=== PATIENT | female | born 1980 | race Caucasian/White ===

== ENCOUNTER 2017-12-26 00:43 | Emergency (ER) | payer OTHER ==
[2017-12-26 01:10] LABS: BILIRUBIN,URINE NEGATIVE (NEGATIVE); GLUCOSE, URINE (UA) NEGATIVE (NEGATIVE); KETONES,URINE (UA) NEGATIVE (NEGATIVE); LEUKOCYTE ESTERASE, URINE NEGATIVE (NEGATIVE); NITRITE,URINE NEGATIVE (NEGATIVE); OCCULT BLOOD,URINE NEGATIVE (NEGATIVE); PROTEIN,URINE NEGATIVE (NEGATIVE); UROBILINOGEN,URINE 0.2 (NORMAL) E.U./dL (NORMAL)
[2017-12-26 01:11] LABS: CLARITY,URINE CLEAR (CLEAR)
[2017-12-26 01:23] LABS: BASOPHILS # (AUTO) 0.2 10^3/uL (0.0-0.1); BASOPHILS % (AUTO) 1.2 %; HGB - HEMOGLOBIN 12.4 g/dL (12.0-16.0); LYMPHOCYTES # (AUTO) 4.3 10^3/uL (1.5-3.5); LYMPHOCYTES % (AUTO) 31.7 %; MEAN CORPUSCULAR HGB CONC 32.9 g/dL (32.0-36.0); MEAN CORPUSCULAR VOLUME 79.1 fL (81.0-99.0); MEAN PLATELET VOLUME 8.9 fL (7.9-10.8); MONOCYTES # (AUTO) 1.2 10^3/uL (0.0-1.0); MONOCYTES % (AUTO) 9.1 %; NEUTROPHILS # (AUTO) 7.8 10^3/uL (1.5-6.6); PLT - PLATELET COUNT 344 10^3/uL (130-450); RED BLOOD COUNT 4.76 10^6/uL (4.20-5.40); RED CELL DISTRIBUTION WIDTH 15.8 % (12.0-15.0); WHITE BLOOD COUNT 13.5 x10^3/uL (4.8-10.8)
[2017-12-26 01:34] LABS: ALBUMIN 4.7 g/dL (3.2-5.5); ALBUMIN/GLOBULIN RATIO 1.3 (1.0-2.2); BILIRUBIN,TOTAL 0.6 mg/dL (0.2-1.0); CALCIUM 9.8 mg/dL (8.5-10.3); CREATININE 0.6 mg/dL (0.4-1.0); TOTAL PROTEIN 8.3 g/dL (6.7-8.2)
[2017-12-26] MEDS ORDERED: RHO(D) IMMUNE GLOBULIN 300 MCG SYRINGE IM ONE (02:41)
--- NOTE | 2017-12-26 02:42 | ED Physician Documentation ---
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 patient states that the symptoms have been going on starting today. patient reports that she called the nursing hot line who told the patient come in for evaluation. Patient had a history of prior cva on aspirin daily Review of Systems Constitutional: denies: Fever, Chills Eyes: reports: Reviewed and negative Ears: reports: Reviewed and negative Nose: reports: Reviewed and negative Throat: reports: Reviewed and negative Cardiac: reports: Reviewed and negative Respiratory: reports: Reviewed and negative GI: denies: Abdominal Pain, Nausea, Vomiting : reports: Vaginal bleeding Skin: denies: Rash, Lesions Musculoskeletal: reports: Reviewed and negative Neurologic: denies: Generalized weakness, Focal weakness, Headache Immunocompromised: denies: Immunocompromised PD PAST MEDICAL HISTORY - Past Medical History Past Medical History: Yes Cardiovascular: None Respiratory: None Neuro: CVA Endocrine/Autoimmune: None GI: None 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: Ovarian cysts, Other : None HEENT: None Psych: None Musculoskeletal: Other Derm: None - Past Surgical History Past Surgical History: Yes General: Other Ortho: Other - Allergies Allergies/Adverse Reactions: Allergies Allergy/AdvReac Type Severity Reaction Status Date / Time morphine AdvReac Respiratory Verified 12/26/17 00:58 pseudoephedrine AdvReac Unknown Verified 12/26/17 00:58 [facility] - Social History Does the pt smoke?: No Smoking Status: Never smoker Does the pt drink ETOH?: Yes Does the pt have substance abuse?: No - Immunizations Immunizations are current?: Yes - POLST Patient has POLST: No PD ED PE NORMAL - General General: Alert and oriented X 3, No acute distress - HEENT HEENT: Atraumatic, PERRL - Cardiac Cardiac: RRR - Respiratory Respiratory: No respiratory distress - Abdomen Abdomen: Soft, Non tender, Non distended - Female Female : Deferred - Derm Derm: Normal color, Warm and dry - Extremities Extremities: No deformity, Normal ROM s pain - Neuro Neuro: Alert and oriented X 3, No motor deficit, Normal speech Eye Opening: Spontaneous Motor: Obeys Commands Verbal: Oriented GCS Score: 15 Results - Vitals Vitals: Vital Signs - 24 hr 12/26/17 00:55 Temperature 37.0 C Heart Rate 88 Respiratory 18 Rate Blood Pressure 159/91 H O2 Saturation 100 Oxygen O2 Source Room air - Labs Labs: Laboratory Tests 12/26/17 12/26/17 12/26/17 01:01 01:11 01:11 WBC 13.5 H RBC 4.76 Hgb 12.4 Hct 37.7 MCV 79.1 L MCH 26.0 L MCHC 32.9 RDW 15.8 H Plt Count 344 MPV 8.9 Neut # 7.8 H Lymph # 4.3 H [place] # 1.2 H Eos # 0.0 Baso # 0.2 H Absolute Nucleated RBC 0.01 Nucleated RBC % 0.1 Sodium 133 L Potassium 4.0 Chloride 100 L Carbon Dioxide 22 Anion Gap 11.0 BUN 10 Creatinine 0.6 Estimated GFR (MDRD) 111 Glucose 105 H Calcium 9.8 Total Bilirubin 0.6 AST 15 ALT 11 Alkaline Phosphatase 52 Total Protein 8.3 H Albumin 4.7 Globulin 3.6 Albumin/Globulin Ratio 1.3 Lipase 18 L HCG, Quant Urine Color YELLOW Urine Clarity CLEAR Urine pH 6.0 Ur Specific [place] 1.010 Urine Protein NEGATIVE Urine Glucose (UA) NEGATIVE Urine Ketones NEGATIVE Urine Occult Blood NEGATIVE Urine Nitrite NEGATIVE Urine Bilirubin NEGATIVE Urine Urobilinogen 0.2 (NORMAL) Ur Leukocyte Esterase NEGATIVE Ur Microscopic Review NOT INDICATED Urine Culture Comments NOT INDICATED Blood Type 12/26/17 12/26/17 01:11 01:11 WBC RBC Hgb Hct MCV MCH MCHC RDW Plt Count MPV Neut # Lymph # [place] # Eos # Baso # Absolute Nucleated RBC Nucleated RBC % Sodium Potassium Chloride Carbon Dioxide Anion Gap BUN Creatinine Estimated GFR (MDRD) Glucose Calcium Total Bilirubin AST ALT Alkaline Phosphatase Total Protein Albumin Globulin Albumin/Globulin Ratio Lipase HCG, Quant 36035.00 Urine Color Urine Clarity Urine pH Ur Specific [place] Urine Protein Urine Glucose (UA) Urine Ketones Urine Occult Blood Urine Nitrite Urine Bilirubin Urine Urobilinogen Ur Leukocyte Esterase Ur Microscopic Review Urine Culture Comments Blood Type O NEGATIVE - Rads (name of study) pelvic us Radiology: Final report received (iup, 6 weeks by size, yolk sac present, no hr large uterine fibroids.), EMP read contemporaneously PD MEDICAL DECISION MAKING - ED course Complexity details: reviewed old records, reviewed results, re-evaluated patient , considered differential, d/w patient ED course: Patient was seen and examined at bedside. labs were drawn, urine was collected and imaging was ordered. When patient returned from imaging the results were reviewed. Patient's had an IUP. patient was treated with rhogam as she ws Rh negative. Patient was made aware of her findings and given detailed discharge and follow up instructions. Patient required no further work up and was stable for discharge with outpatient follow up. Departure - Departure Disposition: 01 Home, Self Care Clinical Impression: Threatened in early Condition: Good Instructions: ED Miscarriage Poss Follow-Up: MICHAEL POWER MD [Primary Care Provider] - Tomorrow Comments: Your diagnostics showed an intrauterine approximately 6 weeks by ultrasound. You did have two large uterine fibroids which could be contributing to the bleeding. You are at a higher risk and you will need to be followed closely. You should avoid any heavy lifting or strenuous activity. You should follow up with your ob this week for further evaluation and care.
[2017-12-26] MEDS ORDERED: RHO(D) IMMUNE GLOBULIN 300 MCG SYRINGE ONE (03:08)
--- NOTE | 2017-12-26 03:30 | Ultrasound Report ---
EXAM: FIRST TRIMESTER OBSTETRIC ULTRASOUND (Less than 11 weeks) EXAM DATE: 12/26/2017 03:07 AM. CLINICAL HISTORY: . Vaginal bleeding. LMP: 11/06/2017. COMPARISONS: None. TECHNIQUE: Transabdominal and transvaginal ultrasound examination with static image documentation. CLINICAL DATES: EGA 7 weeks 1 day with JOSEFINA 08/13/2018 based on LMP. ASSESSMENT: Gestational Sac: Single intrauterine. Mean gestational sac diameter: 17 mm = 6 weeks 4 days. Embryo: CRL (crown-rump length) 4 mm = 6 weeks 2 days. Cardiac activity: Not seen. Yolk sac: 3.6 mm. Amniotic fluid: Not accurately assessed at this gestational age. Early placenta: Not visible at this gestational age. Other: No perigestational fluid collection demonstrated. MATERNAL STRUCTURES: Uterus: Anteverted. Enlarged at 16.2 x 9.0 x 8.5 cm, 653 cc. Fundal pedunculated fibroid measuring 7. 0 x 4.5 x 8.4 cm. Posterior subserosal fibroid measuring 5.7 x 6.1 x 6.2 cm. Cervix: Closed. Right Ovary/Adnexa: Unremarkable. The ovary measures 3.1 x 1.8 x 2.7 cm, volume 8.2 cc. Left Ovary/Adnexa: Unremarkable. The ovary measures 2.2 x 2.7 x 3.5 cm, volume 10.6 cc. Free Fluid: None. Other: None. IMPRESSION: 1. Single intrauterine at EGA 6 weeks 2 days with JOSEFINA 08/19/2018 based on crown-rump length , which is discordant with clinical dates. 2. Assigned dating is JOSEFINA 08/19/2018 based on current US. 3. Cardiac activity not identified. It may be too early in gestation. Sonographic follow-up recommend ed. 4. Bulky uterus measuring 653 cc with at least 2 large fibroids measuring up to 8 cm in diameter. [facility] Referring Provider Line: [phone] SITE ID: [id number]
[2017-12-26 03:49] VITALS: BP 129/75
== END 2017-12-26 03:52 | disposition home or self-care (01) ==
LOC: ED 00:43
DX: O26.851 Spotting complicating pregnancy, first trimester (principal); Z3A.01 Less than 8 weeks gestation of pregnancy; Z86.73 Personal history of transient ischemic attack (TIA), and cerebral infarction without residual deficits
CPT/HCPCS: 36415; 76801; 76817; 80053; 81001; 81003; 83690; 84702; 85025; 86900; 86901; 87086; 96372; 99283

== ENCOUNTER 2018-02-15 16:50 | Observation (INO) | payer OTHER ==
[2018-02-15 17:17] LABS: BASOPHILS % (AUTO) 0.3 %; EOSINOPHILS % (AUTO) 0.3 %; LYMPHOCYTES # (AUTO) 2.7 10^3/uL (1.5-3.5); MEAN CORPUSCULAR HEMOGLOBIN 27.1 pg (27.0-31.0); MEAN CORPUSCULAR HGB CONC 32.7 g/dL (32.0-36.0); MEAN CORPUSCULAR VOLUME 82.9 fL (81.0-99.0); MEAN PLATELET VOLUME 8.2 fL (7.9-10.8); MONOCYTES # (AUTO) 0.9 10^3/uL (0.0-1.0); MONOCYTES % (AUTO) 7.8 %; NEUTROPHILS # (AUTO) 7.3 10^3/uL (1.5-6.6); NEUTROPHILS % (AUTO) 66.6 %; PLT - PLATELET COUNT 294 10^3/uL (130-450); RED BLOOD COUNT 4.44 10^6/uL (4.20-5.40); RED CELL DISTRIBUTION WIDTH 18.6 % (12.0-15.0); WHITE BLOOD COUNT 10.9 x10^3/uL (4.8-10.8)
[2018-02-15 17:47] LABS: ALBUMIN 3.7 g/dL (3.2-5.5); ALBUMIN/GLOBULIN RATIO 0.9 (1.0-2.2); ALKALINE PHOSPHATASE 39 IU/L (42-121); ALT ALANINE AMINOTRANSFERASE 10 IU/L (10-60); AST ASPARTATE AMINOTRANSFERASE 16 IU/L (10-42); BILIRUBIN,TOTAL 0.4 mg/dL (0.2-1.0); BUN - BLOOD UREA NITROGEN 7 mg/dL (6-20); CALCIUM 10.1 mg/dL (8.5-10.3); CARBON DIOXIDE - CO2 24 mmol/L (21-32); CHLORIDE 104 mmol/L (101-111); CREATININE 0.6 mg/dL (0.4-1.0); GFR - MDRD 111 (>89); GLUCOSE 129 mg/dL (70-100); LIPASE 20 U/L (22-51); SODIUM 136 mmol/L (135-145); TOTAL PROTEIN 7.7 g/dL (6.7-8.2)
[2018-02-15] MEDS ORDERED: MAG HYDROX/AL HYDROX/SIMETH 30 ML UDC PO STA (18:57)
[2018-02-15] MEDS ORDERED: LIDOCAINE VISCOUS 2% 15 ML UDC MM STA (18:57)
--- NOTE | 2018-02-15 19:00 | ED Physician Documentation ---
PD HPI ABD PAIN - Stated complaint Stated Complaint: 14 WKS/CRAMP/HX OF STROKE - Chief complaint Chief Complaint: Abd Pain - History obtained from History obtained from: Patient, Family - History of Present Illness Timing - onset: Other (37-year-old G1 at 13 weeks gestation. She has had a stroke in the past and currently is taking aspirin and vitamins. For the last 5 days she has had central abdominal pain with nausea but no vomiting and left lower quadrant cramping. There is no bleeding or fluid loss.) Review of Systems Ten Systems: 10 systems reviewed and negative Constitutional: denies: Fever, Chills Respiratory: denies: Dyspnea, Cough GI: reports: Abdominal Pain, Nausea. 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: Ovarian cysts, Other : None HEENT: None Psych: None Musculoskeletal: Other Derm: None - Past Surgical History Past Surgical History: Yes General: Other Ortho: Other - Allergies Allergies/Adverse Reactions: Allergies Allergy/AdvReac Type Severity Reaction Status Date / Time morphine AdvReac Respiratory Verified 12/26/17 00:58 pseudoephedrine AdvReac Unknown Verified 12/26/17 00:58 [From [facility]] - Social History Does the pt smoke?: No Smoking Status: Never smoker Does the pt drink ETOH?: Yes Does the pt have substance abuse?: No - Family History Family history: reports: Non contributory - Immunizations Immunizations are current?: Yes - POLST Patient has POLST: No PD ED PE NORMAL - Vitals Vital signs reviewed: Yes - General General: Alert and oriented X 3, Other (She does appear uncomfortable) - Neck Neck: Supple, no meningeal sign, No bony TTP - Cardiac Cardiac: RRR, No murmur - Respiratory Respiratory: No respiratory distress, Clear bilaterally - Abdomen Abdomen: Other (Tender to the left pelvis without guarding or rebound. Bedside ultrasound demonstrates single live intrauterine with heart rate of 158.) - Derm Derm: Normal color, Warm and dry - Extremities Extremities: No edema, No calf tenderness / cord - Neuro Neuro: Alert and oriented X 3, Normal speech - Psych Psych: Normal mood, Normal affect Results - Vitals Vitals: Vital Signs - 24 hr 02/15/18 02/15/18 02/15/18 16:56 19:32 21:07 Temperature 36.8 C Heart Rate 106 H 92 81 Respiratory 16 20 16 Rate Blood Pressure 157/102 H 137/90 H 136/85 H O2 Saturation 99 100 100 02/15/18 21:51 Temperature Heart Rate 99 Respiratory 18 Rate Blood Pressure 141/88 H O2 Saturation 100 Oxygen O2 Source Room air - Labs Labs: Laboratory Tests 02/15/18 02/15/18 02/15/18 17:11 17:11 18:50 WBC 10.9 H RBC 4.44 Hgb 12.0 Hct 36.8 L MCV 82.9 MCH 27.1 MCHC 32.7 RDW 18.6 H Plt Count 294 MPV 8.2 Neut # 7.3 H Lymph # 2.7 [place] # 0.9 Eos # 0.0 Baso # 0.0 Absolute Nucleated RBC 0.00 Nucleated RBC % 0.0 Sodium 136 Potassium 3.3 L Chloride 104 Carbon Dioxide 24 Anion Gap 8.0 BUN 7 Creatinine 0.6 Estimated GFR (MDRD) 111 Glucose 129 H Calcium 10.1 Total Bilirubin 0.4 AST 16 ALT 10 Alkaline Phosphatase 39 L Total Protein 7.7 Albumin 3.7 Globulin 4.0 Albumin/Globulin Ratio 0.9 L Lipase 20 L Serum HCG, Qual POSITIVE Urine Color YELLOW Urine Clarity CLEAR Urine pH 5.5 Ur Specific [place] <=1.005 Urine Protein NEGATIVE Urine Glucose (UA) NEGATIVE Urine Ketones NEGATIVE Urine Occult Blood TRACE-INTA Urine Nitrite NEGATIVE Urine Bilirubin NEGATIVE Urine Urobilinogen 0.2 (NORMAL) Ur Leukocyte Esterase NEGATIVE Ur Microscopic Review NOT INDICATED Urine Culture Comments NOT INDICATED - Rads (name of study) Pelvic and abd sono Radiology: EMP read contemporaneously (Normal gallbladder, fibroid uterus.) PD MEDICAL DECISION MAKING - ED course ED course: 37-year-old woman who is tender in the left lower quadrant, she is with a high risk . No resolution with GI cocktail and appeared persistently uncomfortable. Workup notable for mild leukocytosis and fibroid uterus. Given persistent tenderness I did ask the on-call behavioral interventionist, Dr. Beata Santiago to come see her at around 930. After her evaluation the plan is to keep her in observation for serial exam and ultrasounds. Departure - Departure Disposition: ED Place in Observation Clinical Impression: Abdominal pain Qualifiers: Abdominal location: generalized Qualified Code(s): R10.84 - Generalized abdominal pain Qualifiers: Weeks of gestation: 13 weeks Qualified Code(s): Z3A.13 - 13 weeks gestation of Condition: Stable
[2018-02-15 19:17] LABS: HCG,QUALITATIVE BLOOD POSITIVE
[2018-02-15 19:26] LABS: BILIRUBIN,URINE NEGATIVE (NEGATIVE); GLUCOSE, URINE (UA) NEGATIVE (NEGATIVE); KETONES,URINE (UA) NEGATIVE (NEGATIVE); LEUKOCYTE ESTERASE, URINE NEGATIVE (NEGATIVE); NITRITE,URINE NEGATIVE (NEGATIVE); OCCULT BLOOD,URINE TRACE-INTA (NEGATIVE); PH,URINE 5.5 PH (5.0-7.5); PROTEIN,URINE NEGATIVE (NEGATIVE); UROBILINOGEN,URINE 0.2 (NORMAL) E.U./dL (NORMAL)
[2018-02-15 19:29] LABS: CLARITY,URINE CLEAR (CLEAR)
--- NOTE | 2018-02-15 21:20 | Ultrasound Report ---
EXAM: FIRST TRIMESTER OBSTETRIC ULTRASOUND (Less than 11 weeks) EXAM DATE: 02/15/2018 08:56 PM. CLINICAL HISTORY: Pelvic, LLQ pain 13 weeks. LMP: 11/06/2017. COMPARISONS: None. TECHNIQUE: Transabdominal ultrasound examination with static image documentation. ASSESSMENT: Gestational Sac: Single intrauterine. Mean gestational sac diameter: 58 mm. Embryo: CRL (crown-rump length) 68 mm = 13 weeks 6 days. Cardiac activity: 140 beats per minute. Amniotic fluid: Subjectively within normal limits.. Early placenta: Anterior. Other: No perigestational fluid collection demonstrated. MATERNAL STRUCTURES: Uterus: Anteverted/Retroverted. There are several large fibroids. There is a 6.2 x 6.3 x 6.7 cm right lower uterine segment intramural fibroid. Possible left lower uterine segment intramural fibroid ashleigh suring 4.0 x 3.5 x 3.2 cm. Cervix: Closed. Right Ovary/Adnexa: Unremarkable. The ovary measures 2.7 x 3.0 x 2.4 cm, volume 10 cc. Left Ovary/Adnexa: Unremarkable. The ovary measures 4.4 x 1.8 x 3.2 cm, volume 13 cc. Free Fluid: None. Other: None. IMPRESSION: 1. Single viable intrauterine at EGA 13 weeks 4 days based on crown-rump length, which is c oncordant with clinical dates. 2. Assigned dating is JOSEFINA 14 weeks 3 days based on symmetrically clinical dating. 3. There is one and possibly two large lower uterine segment fibroids. 4. The ovaries are normal in size, echotexture, and vascularity. [facility] Referring Provider Line: [phone] SITE ID: [id number]
--- NOTE | 2018-02-15 21:22 | Ultrasound Preliminary Report ---
Exam: US ABDOMEN LIMITED IMPRESSION: 1. The gallbladder demonstrates no stones or wall thickening. 2. No intra-or extrahepatic bile duct dilatation. [facility] SITE ID: [id number]
--- NOTE | 2018-02-15 21:22 | Ultrasound Report ---
EXAM: ABDOMEN ULTRASOUND LIMITED, RUQ EXAM DATE: 02/15/2018 09:01 PM. CLINICAL HISTORY: Abd pain. COMPARISON: None. TECHNIQUE: Real-time scanning was performed with static images obtained. FINDINGS: Liver: Submitted images of liver demonstrate no focal lesions. Main portal vein flow: Hepatopetal. Gallbladder: Subcentimeter echogenic nonmobile focus could represent a polyp. No gallbladder wall thi ckening. Negative sonographic Cardenas sign. Biliary System: CBD measures 2 mm. No intrahepatic or extrahepatic ductal dilatation. Other: The visualized pancreas and right kidney are unremarkable. IMPRESSION: 1. The gallbladder demonstrates no stones or wall thickening. 2. No intra-or extrahepatic bile duct dilatation. [facility] Referring Provider Line: [phone] SITE ID: [id number]
[2018-02-15] MEDS ORDERED: fentaNYL 100 MCG/2 ML VIAL IVP STA ×2 (21:31→22:34)
[2018-02-15] MEDS ORDERED: SODIUM CHLORIDE FLUSH 0.9% 10 ML SYRINGE IVP PRN (22:19)
[2018-02-15] MEDS ORDERED: ZOLPIDEM 5 MG TABLET PO PRN (22:19)
--- NOTE | 2018-02-15 22:56 | PROVIDER PROGRESS NOTE ---
Subjective - Prog Note Date Prog Note Date: 02/15/18 Prog Note Time: 22:52 Objective - Vital Signs/Intake & Output Reviewed Vital Signs: Yes Vital Signs: Vital Signs x48h Temp Pulse Resp BP Pulse Ox 02/15/18 22:41 78 16 141/89 H 100 02/15/18 21:51 99 18 141/88 H 100 02/15/18 21:07 81 16 136/85 H 100 02/15/18 19:32 92 20 137/90 H 100 02/15/18 16:56 98.2 F 106 H 16 157/102 H 99 - Objective General Appearance: positive: Mild distress (Secondary to pain) - Lab Results Fish Bones: 02/15/18 17:11 02/15/18 17:11 Other Labs: Lab Results x24hrs 02/15/18 02/15/18 02/15/18 Range/Units 18:50 17:11 17:11 WBC 10.9 H (4.8-10.8) x10^3/uL RBC 4.44 (4.20-5.40) 10^6/uL Hgb 12.0 (12.0-16.0) g/dL Hct 36.8 L (37.0-47.0) % MCV 82.9 (81.0-99.0) fL MCH 27.1 (27.0-31.0) pg MCHC 32.7 (32.0-36.0) g/dL RDW 18.6 H (12.0-15.0) % Plt Count 294 (130-450) 10^3/uL MPV 8.2 (7.9-10.8) fL Neut # 7.3 H (1.5-6.6) 10^3/uL Lymph # 2.7 (1.5-3.5) 10^3/uL [place] # 0.9 (0.0-1.0) 10^3/uL Eos # 0.0 (0.0-0.7) 10^3/uL Baso # 0.0 (0.0-0.1) 10^3/uL Absolute Nucleated RBC 0.00 x10^3/uL Nucleated RBC % 0.0 /100WBC Sodium 136 (135-145) mmol/L Potassium 3.3 L (3.5-5.0) mmol/L Chloride 104 (101-111) mmol/L Carbon Dioxide 24 (21-32) mmol/L Anion Gap 8.0 (6-13) BUN 7 (6-20) mg/dL Creatinine 0.6 (0.4-1.0) mg/dL Estimated GFR (MDRD) 111 (>89) Glucose 129 H (70-100) mg/dL Calcium 10.1 (8.5-10.3) mg/dL Total Bilirubin 0.4 (0.2-1.0) mg/dL AST 16 (10-42) IU/L ALT 10 (10-60) IU/L Alkaline Phosphatase 39 L (42-121) IU/L Total Protein 7.7 (6.7-8.2) g/dL Albumin 3.7 (3.2-5.5) g/dL Globulin 4.0 (2.1-4.2) g/dL Albumin/Globulin Ratio 0.9 L (1.0-2.2) Lipase 20 L (22-51) U/L Serum HCG, Qual POSITIVE Urine Color YELLOW Urine Clarity CLEAR (CLEAR) Urine pH 5.5 (5.0-7.5) PH Ur Specific [place] <=1.005 (1.002-1.030) Urine Protein NEGATIVE (NEGATIVE) mg/dL Urine Glucose (UA) NEGATIVE (NEGATIVE) mg/dL Urine Ketones NEGATIVE (NEGATIVE) mg/dL Urine Occult Blood [place] (NEGATIVE) Urine Nitrite NEGATIVE (NEGATIVE) Urine Bilirubin NEGATIVE (NEGATIVE) Urine Urobilinogen 0.2 (NORMAL) (NORMAL) E.U./dL Ur Leukocyte Esterase NEGATIVE (NEGATIVE) Ur Microscopic Review NOT INDICATED Urine Culture Comments NOT INDICATED Assessment/Plan - Problem List (1) Abdominal pain Impression: 37 yo with a 14w3d IUP Epigastric and LLQ pain of unknown origin, most likely from GI Will admit to observation for IV PPI and acid reducers as well as pain control Order complete abdomen U/S in AM Start labetalol 100 mg BID for chronic HTN Continue ASA 81 mg QD along with SCD's for H/O CVA 05/2017 Request records in AM Strongly consider consultation of MFM in AM if no significant improvement H&P Dictated [id number] Qualifiers: Abdominal location: generalized Qualified Code(s): R10.84 - Generalized abdominal pain
[2018-02-16] MEDS: LACTATED RINGERS 1,000 ML IV SCH ×2 (00:12→07:21)
[2018-02-16] MEDS: LABETALOL 100 MG TABLET PO SCH ×2 (00:21→10:49)
[2018-02-16] MEDS: HYDROmorphone 0.5 MG/0.5 ML SYRINGE IVP PRN ×4 (00:22→10:49)
[2018-02-16] MEDS: ASPIRIN EC 81 MG TABLET PO SCH ×2 (00:24→10:49)
[2018-02-16] MEDS: PRENATAL VITAMIN TABLET PO SCH ×2 (00:24→09:00)
[2018-02-16] MEDS: FAMOTIDINE 20 MG/50 ML 50 ML IV SCH ×2 (00:27→10:50)
[2018-02-16] MEDS ORDERED: SODIUM CHLORIDE FLUSH 0.9% 10 ML SYRINGE IVP SCH (01:00)
[2018-02-16] MEDS: ONDANSETRON 4 MG/2 ML VIAL IVP PRN ×2 (01:06→10:48)
[2018-02-16] MEDS: ACETAMINOPHEN 325 MG TABLET PO PRN ×2 (05:32→10:49)
[2018-02-16] MEDS ORDERED: PANTOPRAZOLE 40 MG VIAL IVP SCH (07:00)
[2018-02-16 07:30] LABS: MUDS CUTOFF CONCENTRATIONS CUTOFF CONC BELOW:
[2018-02-16 07:45] LABS: AMPHETAMINE SCREEN,URINE NEGATIVE (NEGATIVE); BENZODIAZEPINES SCREEN, URINE NEGATIVE (NEGATIVE); COCAINE SCREEN URINE NEGATIVE (NEGATIVE); METHADONE SCREEN, URINE NEGATIVE (NEGATIVE); METHAMPHETAMINES SCREEN, URINE NEGATIVE (NEGATIVE); OPIATE SCREEN, URINE NEGATIVE (NEGATIVE); OXYCODONE SCREEN, URINE NEGATIVE (NEGATIVE); PROPOXYPHENE SCREEN, URINE NEGATIVE (NEGATIVE); TRICYCLIC ANTIDEPRESSANT,URINE NEGATIVE (NEGATIVE)
--- NOTE | 2018-02-16 07:52 | HISTORY & PHYSICAL EXAMINATION ---
DATE OF SERVICE: 02/15/2018 Physician: Beata Santiago DO IDENTIFICATION: This is a 37-year-old G1, P0, with a 13w4d IUP. LMP of 2017 and an EDC of 08/19/2018. HISTORY OF PRESENT ILLNESS: The patient is a patient of [facility], specifically Dr. Rubio, who presents to the emergency department this evening. She is accompanied by her , Oswaldo. 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 Obi Paiz at the [facility]. She saw Dr. Paiz about 2-1/2 weeks ago. At that time, she was complaining about having epigastric pain and was given a prescription for Pepcid. Pepcid has not seemed to help. Her symptoms have been getting more frequent and more intense. She has a hard time describing the pain, but it is not stabbing nor sharp, it is "intense." The frequency and intensity have been worsening since Monday about 4-1/2 days ago. The pain is also constant. 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 She feels that she needs to burp, but cannot do so. The pain comes and goes. She thought that it may be related to her GI tract since she did not have a bowel movement between Monday to Monday, but did have 2 bowel movements yesterday. She also has decreased appetite and has not eaten in the last day. She denies any vaginal bleeding and states that she has been checking the baby's heart rate twice a day. The patient has been seen in the emergency department and has been worked up by Dr. Baudilio Brooke. So far, workup is unremarkable. A GI cocktail was given to her, but there was no resolution of her pain. She was also given some fentanyl and felt some improvement in the pain, but felt more dizzy. PAST MEDICAL HISTORY 1. Hypertension, newly diagnosed. 2. CVA in May 2017, in [place]. 3. PCOS. PAST SURGICAL HISTORY 1. Ankle surgery on the left side x4. 2. Right eye. ALLERGIES 1. MORPHINE, IN WHICH SHE FEELS LIKE SOMEONE IS SITTING ON HER CHEST AND IT IS HARD FOR HER TO BREATHE. 2. PSEUDOEPHEDRINE CAUSES HER TO CONVULSE. MEDICATIONS 1. vitamins. 2. Aspirin 81 mg. 3. Pepcid-AC. 4. Labetalol 100 mg 1 tab p.o. b.i.d. that has been started by Dr. Paiz, but she has not initiated this. SOCIAL HISTORY: The patient was smoking 5-7 cigarettes per day and stopped about 1 week prior to her cessation of tobacco smoking. She denies any history of alcoholism or illicit drug use. She states she has been working on and off, but is not specific in what career she has. 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 PAST MEDICAL HISTORY: Primigravida. She was told that it was extremely unlikely for her to get . PAST GYNECOLOGIC HISTORY: The patient does have a history of PCOS and had one menstrual cycle per year. After her stroke, she had a large amount of weight loss and consequently had monthly periods. She states her Pap smears have been normal and denies any sexually transmitted diseases. FAMILY HISTORY: CVAs. REVIEW OF SYSTEMS: Negative, unless otherwise stated. She does have nausea, but denies any vomiting, fevers or chills. PHYSICAL EXAMINATION VITAL SIGNS: Blood pressure 136/85, pulse 81, respirations 16, pulse oximetry 100. GENERAL: The patient is a female who appears to be in some amount of distress. She does bend over in the bed when she has experienced a wave of pain. She does appear to be older than her stated age. She is obese. HEENT: The patient does have a laterally deviated left eye and she is hirsute. ABDOMEN: Soft. Mild tenderness to palpation in the epigastric area in the left lower quadrant. There are no peritoneal signs. We could not appreciate the uterus given her body habitus. Workup reveals a white count of 10.9, H and H of 12.0 and 36.8, platelets 294. Potassium 3.3, creatinine 0.6, glucose 129, AST 16, ALT 10, lipase is 20. Urinalysis only shows trace occult blood. First trimester OB ultrasound showed a single intrauterine with a crown-rump length of 68 mm or 13 weeks 6 days, 140 beats per minute, anterior placenta, no perigestational fluid collection demonstrated. The uterus has several large fibroids. There is a 6.2 x 6.3 x 6.7 cm right lower uterine segment intramural fibroid, possible left uterine segment intramural fibroid measuring 4.0 x 3.5 x 3.2 cm. Cervix is closed. Ovaries are within normal limits. No free fluid. Limited right upper quadrant ultrasound for abdominal pain shows the gallbladder demonstrates no stones or wall thickening, no intra or extrahepatic bile duct dilatation. An earlier emergency department visit on 12/26/2017 revealed her blood type is O negative. She did receive RhoGAM at that time for threatened . ASSESSMENT 1. A 37-year-old G1, P0, with a 13w4d intrauterine . 2. Epigastric and left lower quadrant pain of unknown etiology. 3. Chronic hypertension. 4. History of cerebrovascular accident in 05/2017. PLAN 1. It is not obvious to me what is the cause of the patient's epigastric pain. The differential includes reflux, HELLP, pancreatitis, gallbladder disease, leiomyomata. I suspect that the etiology is more from the GI tract. Until we can get a better handle on what is causing her pain, I recommend that she be admitted to observation. I would like to start her on famotidine, as well as Protonix. We will order an abdominal ultrasound for completion of her workup. 2. We will give IV Dilaudid for pain control. 3. We will start her on Labetalol 100 mg 1 tab p.o. b.i.d., as well as continue her on her aspirin 81 mg. 4. SCDs given her history of a cerebrovascular accident. 5. Should there be no significant improvement, I would strongly consider consultation with the Maternal Medicine physicians in the morning. TD: 02/15/2018 23:00 STELLA
--- NOTE | 2018-02-16 07:58 | Ultrasound Report ---
EXAM: ABDOMEN ULTRASOUND LIMITED, RUQ EXAM DATE: 02/16/2018 07:30 AM. CLINICAL HISTORY: Abdominal pain. COMPARISON: 02/15/2018. TECHNIQUE: Real-time scanning was performed with static images obtained. FINDINGS: Pancreas: The visualized pancreas is normal in contour and echotexture. The entire pancreas is not vi sualized. Left kidney: 9.5 cm in maximal length. Normal echotexture. No hydronephrosis. No renal calculi or estevan id renal masses. IMPRESSION: 1. No sonographic appearance of the left kidney. 2. Normal sonographic appearance of the visualized pancreas. The entire pancreas is not visualized. [facility] Referring Provider Line: [phone] SITE ID: [id number]
[2018-02-16] MEDS ORDERED: POLYETHYLENE GLYCOL 3350 17 GM PACKET PO SCH (09:00)
[2018-02-16 09:06] VITALS: BP 118/67
--- NOTE | 2018-02-16 11:07 | PROVIDER PROGRESS NOTE ---
Subjective - Prog Note Date Prog Note Date: 02/16/18 Prog Note Time: 11:05 - Subjective Pt reports feeling: No change Subjective: Patient sitting in bed. Improved morning sickness but epigastric pain not changed. No VB. Able to sleep for a couple of hours with IV dilaudid. Objective - Vital Signs/Intake & Output Reviewed Vital Signs: Yes Vital Signs: Vital Signs x48h Temp Pulse Resp BP Pulse Ox 02/16/18 08:00 98.4 F 88 18 118/67 99 02/16/18 04:23 98.2 F 83 20 121/65 98 Intake & Output: Intake & Output 02/13/18 02/14/18 02/15/18 02/16/18 23:59 23:59 23:59 23:59 Intake Total 1050 Output Total 700 Balance 350 - Objective General Appearance: positive: Mild distress (Doubling over when wave of pain occurs) Abdomen: positive: Other (Soft, no peritoneal signs) Neurologic/Psychiatric: positive: Oriented x3 - Lab Results Fish Bones: 02/15/18 17:11 02/15/18 17:11 Other Labs: Lab Results x24hrs 02/16/18 Range/Units 09:00 Troponin I < 0.04 (<0.49) ng/mL - Diagnostic Imaging Diagnostic Imaging Results: positive: Prelim report reviewed, Final report reviewed (Limited abd U/S WNL) Assessment/Plan - Problem List (1) Abdominal pain Impression: 37 yo with a 14w4d IUP Continued epigastric pain of unknown etiology, suspect gastric ulcers EKG and Troponins negative Normal abd U/S and labs Discussed case with Dr. Obi Paiz who recommends WI R/o (negative) and a GI consult. [place] need to see [facility] for specialist consult. Recommend patient to follow up with Drs. Rubio and Izabel. Recommend to take zantac 150 mg BID OTC. Qualifiers: Abdominal location: generalized Qualified Code(s): R10.84 - Generalized abdominal pain Discharge Plan Disposition: Home, Self Care Condition: Stable Activity Restrictions: Activity as Tolerated Shower Restrictions: No Driving Restrictions: No Weight Bearing: Full Weight No Smoking: If you smoke, Please STOP! Call for help. Follow-up with: MICHAEL POWER MD [Primary Care Provider] -
== END 2018-02-16 11:50 | disposition home or self-care (01) ==
LOC: ED 16:50 → FBP 22:19
PROVIDERS: ADMIT Obstetrics & Gynecology; ATTEND Obstetrics & Gynecology
DX: O26.891 Other specified pregnancy related conditions, first trimester (principal); R10.13 Epigastric pain; R10.32 Left lower quadrant pain; O09.511 Supervision of elderly primigravida, first trimester; Z3A.13 13 weeks gestation of pregnancy; O34.11 Maternal care for benign tumor of corpus uteri, first trimester; D25.1 Intramural leiomyoma of uterus; O10.911 Unspecified pre-existing hypertension complicating pregnancy, first trimester; O99.211 Obesity complicating pregnancy, first trimester; E66.9 Obesity, unspecified; O99.281 Endocrine, nutritional and metabolic diseases complicating pregnancy, first trimester; E28.2 Polycystic ovarian syndrome; Z86.73 Personal history of transient ischemic attack (TIA), and cerebral infarction without residual deficits; Z79.82 Long term (current) use of aspirin; Z68.33 Body mass index [BMI] 33.0-33.9, adult; Z67.41 Type O blood, Rh negative; Z79.899 Other long term (current) drug therapy; Z87.891 Personal history of nicotine dependence
CPT/HCPCS: 36415; 76705; 76801; 80053; 80306; 81003; 83690; 84484; 84703; 85025; 93005; 93041; 96361; 96365; 96375; 96376; 99284; 99285; A9270; G0378; J1170; J7120; 81001; 87086; 96374

== ENCOUNTER 2018-04-26 12:32 | Outpatient (CLI) | payer OTHER ==
[2018-04-26 13:05] LABS: BILIRUBIN,URINE NEGATIVE (NEGATIVE); GLUCOSE, URINE (UA) NEGATIVE (NEGATIVE); KETONES,URINE (UA) NEGATIVE (NEGATIVE); LEUKOCYTE ESTERASE, URINE NEGATIVE (NEGATIVE); NITRITE,URINE NEGATIVE (NEGATIVE); OCCULT BLOOD,URINE NEGATIVE (NEGATIVE); PROTEIN,URINE NEGATIVE (NEGATIVE); UROBILINOGEN,URINE 0.2 (NORMAL) E.U./dL (NORMAL)
[2018-04-26 13:10] LABS: CLARITY,URINE HAZY (CLEAR)
[2018-04-26 13:17] LABS: BACTERIA,URINE Many /HPF (None Seen); RBC,URINE 0-5 /HPF (0-5); SQUAMOUS EPITHELIAL CELL,UR MANY Squamous (<= Few)
[2018-04-26 13:52] LABS: BASOPHILS % (AUTO) 0.3 %; EOSINOPHILS # (AUTO) 0.1 10^3/uL (0.0-0.7); HGB - HEMOGLOBIN 10.8 g/dL (12.0-16.0); LYMPHOCYTES # (AUTO) 2.1 10^3/uL (1.5-3.5); LYMPHOCYTES % (AUTO) 19.7 %; MEAN CORPUSCULAR HEMOGLOBIN 29.1 pg (27.0-31.0); MEAN CORPUSCULAR HGB CONC 34.4 g/dL (32.0-36.0); MEAN CORPUSCULAR VOLUME 84.6 fL (81.0-99.0); MEAN PLATELET VOLUME 8.8 fL (7.9-10.8); MONOCYTES # (AUTO) 0.8 10^3/uL (0.0-1.0); MONOCYTES % (AUTO) 7.6 %; NEUTROPHILS # (AUTO) 7.6 10^3/uL (1.5-6.6); NEUTROPHILS % (AUTO) 71.4 %; PLT - PLATELET COUNT 254 10^3/uL (130-450); RED CELL DISTRIBUTION WIDTH 14.6 % (12.0-15.0); WHITE BLOOD COUNT 10.6 x10^3/uL (4.8-10.8)
[2018-04-26] MEDS ORDERED: LABETALOL 100 MG TABLET PO SCH (14:00)
[2018-04-26 14:02] LABS: CREATININE 0.6 mg/dL (0.4-1.0); URIC ACID 4.5 mg/dL (2.6-7.2)
[2018-04-26 14:04] LABS: CREATININE,URINE 37.7 mg/dL
[2018-04-26 14:05] LABS: TOTAL PROTEIN,URINE TIMED < 6 mg/dL
[2018-04-26 14:22] LABS: HB2 TOTAL 11.5 g/dL; HEMOGLOBIN A1C 0.48 g/dL
[2018-04-26] MEDS ORDERED: CALCIUM CARBONATE CHEW 500 MG TABLET PO SCH (15:00)
[2018-04-26 17:38] VITALS: BP 120/74
== END 2018-04-26 16:40 | disposition home or self-care (01) ==
LOC: WFO 12:32 → FBP 12:33 → WFO 16:40
PROVIDERS: ATTEND Obstetrics & Gynecology
DX: O99.612 Diseases of the digestive system complicating pregnancy, second trimester (principal); Z3A.23 23 weeks gestation of pregnancy; K21.9 Gastro-esophageal reflux disease without esophagitis
CPT/HCPCS: 36415; 81001; 82565; 82570; 82947; 83036; 83615; 84156; 84450; 84550; 85025; 93005; 99213; A9270; 81003; 87086

== ENCOUNTER 2018-05-30 08:41 | Outpatient (CLI) | payer OTHER ==
[2018-05-30 10:04] LABS: BASOPHILS % (AUTO) 0.1 %; EOSINOPHILS # (AUTO) 0.1 10^3/uL (0.0-0.7); EOSINOPHILS % (AUTO) 0.8 %; HGB - HEMOGLOBIN 10.9 g/dL (12.0-16.0); LYMPHOCYTES # (AUTO) 1.8 10^3/uL (1.5-3.5); LYMPHOCYTES % (AUTO) 19.3 %; MEAN CORPUSCULAR HEMOGLOBIN 28.6 pg (27.0-31.0); MEAN CORPUSCULAR VOLUME 84.1 fL (81.0-99.0); MEAN PLATELET VOLUME 8.7 fL (7.9-10.8); MONOCYTES # (AUTO) 0.7 10^3/uL (0.0-1.0); MONOCYTES % (AUTO) 7.9 %; NEUTROPHILS # (AUTO) 6.7 10^3/uL (1.5-6.6); NEUTROPHILS % (AUTO) 71.9 %; PLT - PLATELET COUNT 278 10^3/uL (130-450); RED BLOOD COUNT 3.82 10^6/uL (4.20-5.40); RED CELL DISTRIBUTION WIDTH 14.5 % (12.0-15.0); WHITE BLOOD COUNT 9.3 x10^3/uL (4.8-10.8)
[2018-05-30 10:12] LABS: CREATININE,URINE 34.1 mg/dL; TOTAL PROTEIN,URINE TIMED < 6 mg/dL
[2018-05-30] MEDS ORDERED: fentaNYL 100 MCG/2 ML VIAL IVP ONE ×2 (10:14→14:04)
[2018-05-30 10:16] LABS: ALBUMIN 3.5 g/dL (3.2-5.5); ALBUMIN/GLOBULIN RATIO 0.8 (1.0-2.2); BILIRUBIN,TOTAL 0.6 mg/dL (0.2-1.0); CALCIUM 9.9 mg/dL (8.5-10.3); CREATININE 0.7 mg/dL (0.4-1.0)
[2018-05-30] MEDS ORDERED: SODIUM CHLORIDE FLUSH 0.9% 10 ML SYRINGE ONE ×7 (10:17→18:25)
[2018-05-30 10:23] LABS: BILIRUBIN,URINE NEGATIVE (NEGATIVE); GLUCOSE, URINE (UA) NEGATIVE (NEGATIVE); KETONES,URINE (UA) NEGATIVE (NEGATIVE); LEUKOCYTE ESTERASE, URINE NEGATIVE (NEGATIVE); NITRITE,URINE NEGATIVE (NEGATIVE); OCCULT BLOOD,URINE NEGATIVE (NEGATIVE); PROTEIN,URINE NEGATIVE (NEGATIVE); UROBILINOGEN,URINE 0.2 (NORMAL) E.U./dL (NORMAL)
[2018-05-30 10:35] LABS: BACTERIA,URINE Few /HPF (None Seen); CLARITY,URINE HAZY (CLEAR); RBC,URINE 0-5 /HPF (0-5); SQUAMOUS EPITHELIAL CELL,UR MANY Squamous (<= Few)
[2018-05-30] MEDS ORDERED: LABETALOL 100 MG TABLET PO SCH ×2 (11:40→17:54)
[2018-05-30] MEDS ORDERED: fentaNYL 100 MCG/2 ML VIAL ONE (11:42)
[2018-05-30] MEDS ORDERED: fentaNYL 100 MCG/2 ML VIAL IVP SCH ×3 (11:45→18:17)
--- NOTE | 2018-05-30 13:14 | Ultrasound Report ---
Reason: left flank pain Procedure Date: 05/30/2018 Accession Number: [id number] / [id number] Procedure: US - Retroperitoneal CPT Code: FULL RESULT: EXAM: RENAL ULTRASOUND EXAM DATE: 05/30/2018 11:41 AM. CLINICAL HISTORY: Left flank pain. COMPARISON: Limited abdominal ultrasound assessing only the pancreas and left kidney 02/16/2018.. TECHNIQUE: Real-time scanning was performed with static images obtained. FINDINGS: Right Kidney: 10.8 x 4.9 x 5.3 cm. 1.6 x 1.3 x 1.1 cm cyst. Normal echotexture with no stones, contour-deforming masses, or hydronephrosis. Left Kidney: 10.4 x 5.2 x 4.6 cm. Normal echotexture with no stones, contour-deforming masses, or hydronephrosis. Bladder: Bilateral ureteral jets. Prevoid urinary bladder volume 109.3 cc. Postvoid residual not obtained. No masses or stones within the urinary bladder. Other: None. IMPRESSION: 1. 1.6 x 1.3 x 1.1 cm right renal cyst. 2. Otherwise, unremarkable exam. [facility]
--- NOTE | 2018-05-30 13:20 | Ultrasound Report ---
Reason: cervical length, lower abd pain Procedure Date: 05/30/2018 Accession Number: [id number] / [id number] Procedure: US - OB Limited CPT Code: FULL RESULT: EXAM: LIMITED OBSTETRICAL ULTRASOUND EXAM DATE: 05/30/2018 12:46 PM. CLINICAL HISTORY: Lower abdominal pain. Left flank pain. COMPARISON: 02/15/2018. TECHNIQUE: Real-time sonographic evaluation of the fetus performed by the sharples machine operator. Multiple client support representative static images were saved for review. Transvaginal scanning not performed. DATING: Established EGA 29 weeks 2 days with JOSEFINA 08/13/2018. GENERAL EVALUATION García . Cardiac activity: 157 bpm. movement: Not assessed. Presentation: Not assessed. Placenta: Not assessed. Amniotic fluid: Not assessed. ANATOMY Not assessed. MATERNAL STRUCTURES Maternal cervix long and closed. 3.6 cm Translabial measurement of the maternal cervix. IMPRESSION: 1. Single live intrauterine . cardiac rate 157 bpm. 2. Maternal cervix long and closed. 3. Very limited exam as per request. [facility]
[2018-05-30] MEDS ORDERED: ONDANSETRON 4 MG/2 ML VIAL IVP SCH (17:10)
[2018-05-30 19:21] VITALS: BP 129/59
--- NOTE | 2018-05-31 01:28 | CONSULTATION NOTE ---
DATE OF SERVICE: 05/30/2018 Physician: Vivien Jorge MD HISTORY OF PRESENT ILLNESS: This is a 37-year-old white female, G1, P0, history of polycystic ovary disease, history of a stroke when she was in [place] last summer, treated with aspirin and labetalol, history of a 29-week currently. Three months ago, she had an overnight admission into Observation status for complaints of epigastric pain, which was felt to be of GI origin, such as GERD. The patient has a maternal specialist that she sees, for this high risk , at [facility]. The patient awoke this morning with severe pain in the left groin area, wrapping around to her left flank, which worsened in waves. There was associated nausea and vomiting. No diarrhea, no other abdominal pain, no fever or chills. She had been taking the same medications as usual, no changes, no travel, no sick contacts, no description of vomiting after a restaurant meal. The patient was told to come to the emergency room and was now placed in the maternal morales and is under the care of LAUREL Torres. Dr. Holt has asked for an Internal Medicine/Hospitalist consult because of her history of stroke and polycystic ovary disease and being on aspirin and labetalol. There are no records to indicate if she has had evaluation for a hypercoagulable state, such as factor V Leiden deficiency or other abnormality. The patient has had ultrasound done today, to evaluate the fetus, which is stable. The patient continues to have pain in the left groin and flank area, which she rates a 7-10/10. She has received pain medication since being here, but the pain has now broken through. It is worse if she lies down supine or on her left side. It is improved if she lies on her right side. PAST MEDICAL HISTORY 1. Polycystic ovary disease. 2. Stroke one year ago with unknown details and unknown etiology or past workup. ALLERGIES 1. MORPHINE. 2. SUDAFED. MEDICATIONS 1. vitamin. 2. Labetalol 100 mg b.i.d. 3. Famotidine 20 mg daily. 4. Baby aspirin daily. FAMILY HISTORY: No inherited diseases. SOCIAL HISTORY: The patient lives with her who works on the [employer]. She is a recent ex-smoker, drinks no alcohol since she has been , denies illicit drug use. REVIEW OF SYSTEMS: A comprehensive review of systems was performed and the pertinent positives are in the HPI, the rest are negative. PHYSICAL EXAMINATION GENERAL: White female who appears older than her age. She is in moderate to severe distress in pain. Her legs are drawn up to her abdomen and she is sitting cross-legged. She is hirsute. VITAL SIGNS: Blood pressure 140s-150s/76-90, heart rate 98-105 in sinus rhythm , afebrile, room air saturation 99%, respiratory rate 22. HEENT: She has lateral eye deviation, is hirsute. Her oral mucosa is moist. NECK: Without JVD. No carotid bruits. LUNGS: Clear. HEART: Heart sounds are normal, distant, no murmurs. ABDOMEN: Soft, nontender except tender to light palpation in the left femoral area. There is no abdominal guarding or rebound. Bowel sounds are decreased. There is no costophrenic tenderness. There are signs of . EXTREMITIES: Without clubbing, cyanosis, edema. NEUROLOGIC: Intact. LABORATORIES: Sodium 137, potassium 4.0, BUN and creatinine normal. Liver tests normal. Bilirubin normal, alkaline phosphatase normal. Urinalysis shows pH of 6, many squamous cells and a few bacteria. White blood count is normal at 9.3, but she has a left shift. Hemoglobin is 10.9, which has dropped from 12.0 three months ago. Platelet count normal at 278. IMAGING: Retroperitoneal and obstetric ultrasound showed a right renal cyst and otherwise unremarkable exam. The fetus is alive with heart rate 157 and the cervix is long and closed. ASSESSMENT/DIAGNOSES 1. Left groin pain radiating to the left flank. Etiologies could be a ruptured cyst, or pyelonephritis. Unlikely to be urinary calculus since it was not seen on imaging. Unlikely to be diverticulitis without complaints of abdominal pain or diarrhea. Cannot entirely rule out a vascular etiology to this pain given her history of stroke at a young age, but the left leg is warm and not mottled. 2. Polycystic ovary disease with hirsutism. 3. History of stroke 1 year with details unknown. 4. 29th-week of . PLAN 1. Imaging is recommended of the left inguinal area; and since CT imaging and dye would be high risk to the fetus, MRI is recommended. We do not have MRI available here at this time. This was communicated with Dr. Holt, who will plan to transfer the patient to higher level of care, to her maternal specialist dealing with high risk pregnancies. 2. Continue with pain management as needed. 3. Continue with her labetalol and aspirin. Thank you for allowing me to participate in the care of this patient. TD: 05/30/2018 18:16 STELLA
--- NOTE | 2018-05-31 02:43 | DISCHARGE SUMMARY ---
Physician: Сергей Holt MD DATE OF ADMISSION: 05/30/2018 DATE OF DISCHARGE: 05/30/2018 CONSULTATION AND DISCHARGE NOTE DIAGNOSES 1. Left lower quadrant and associated lumbar pain. 2. Status post middle cerebral cerebrovascular accident (05/2017). 3. Chronic hypertension. 4. Gestational diabetes. 5. Leiomyoma (6.7 x 6.2 x 6.3). 6. Peptic ulcer disease, suspect. 7. Hyperlipidemia. 8. Obesity. 9. Herpes type 2 (inactive). 10. A 29-week, 2 day gestation. HISTORY OF PRESENT ILLNESS: Patient is a 37-year-old, , 2, para 0-0-1-0 woman at 29 weeks 2 days gestation, who is routinely seen with Maternal- Medicine and the high risk clinic at [facility]. She comes today complaining of left lower quadrant hip and back pain. She denies contractions, leakage of fluid, pelvic pressure. She reports no abdominal or back trauma. She reports no dysuria, urgency or hematuria or flank pain. She rates her pain at 9/10. She forgot her morning labetalol and initially her pressures were elevated. Patient originally presented to [facility] and was evaluated on 2 occasions by Beata Santiago. First, she was seen in January and informed that she required maternal medicine followup and a delivery venue at a higher level than available in [facility]. She was referred to [facility]. She was seen again in April for followup from an ED visit. At that time, it was noted that again she forgot to take her labetalol. In May 2017, she suffered a left middle cerebral CVA with subcortical involvement including a micro angiopathy and basal ganglia involvement, including the patel radiata. Records state that thrombophilia panel was negative; however, a copy of those labs was not in her faxed chart. She had a focal neuro deficit, which she has recovered from emotionally. She reports no sensory, emotional or cognitive alterations. Currently not under the care of a neurologist on a regular basis. In the past neurology recommended MRI with Angiography. Patient is a known chronic hypertensive and is on labetalol 100 b.i.d. Uncertain of the degree of compliance. When she initially presented, her blood pressure was in the 150s over 90s, which decreased after the first dose of labetalol this morning. Patient was diagnosed with PCO syndrome, prior to . Her initial Glucola test was 229 and her hemoglobin A1c was elevated at 5.9. She was offered metformin, but declined because of GI side effects. Hyperlipidemia. Uncertain of the type of hyperlipidemia in its exact category. Leiomyoma in the right lower segment of the uterus is 6.7 x 6.2 x 6.3 cm. Thus far, ultrasound growth checks have been normal. High anxiety. In 2 of her records, high anxiety was noted. PAST SURGICAL HISTORY: None reported. ALLERGIES 1. MORPHINE 2. SUDAFED. MEDICATIONS 1. vitamins with iron. 2. Labetalol 100 b.i.d. 3. Mini-dose aspirin. SOCIAL HISTORY: [place] dependent. Denies drug, tobacco or alcohol use. PHYSICAL EXAMINATION GENERAL: Patient lying on stretcher in a semi- position on right side, complaining of pain. She was recently given a dose of fentanyl 50 mcg. Alert response to questioning, tearful at times. HEENT: EOMI intact, nonicteric sclera. Cranial nerves grossly intact. Moist mucous membranes. No thyromegaly. NECK: Supple. LUNGS: Clear to auscultation. CARDIAC: Regular systolic murmur grade 2, without diastolic component, rub or gallop. ABDOMEN: Negative Cardenas's sign. Slight enlargement of the liver, probably fatty liver; left inguinal tenderness that extends up the abdominal wall approximately 3 cm and to the midline. No rebound. No flank tenderness elicited. UTERUS: Appropriate size for 29 weeks, flaccid. No point tenderness. HEART TRACING: No contractions recorded. Reactive for 29 weeks with baseline between 120s and 130s. No decelerations noted. EXTERNAL GENITALIA: No lesions. No evidence of herpes. VAGINA: No blood or discharge. CERVIX: Long, thick, and closed. No cervical motion tenderness. EXTREMITIES: Mild atrophy of both arms and legs with evidence of muscle wasting ; warm feet bilaterally with pedal pulses preserved. Right leg slightly smaller than left; no Homans sign or calf tenderness. NEUROLOGIC: Patient's speech and cognition seem normal, though she is very anxious; she moves all 4 extremities well, but specific strength testing not done. Patellar reflexes 2+ and equal. Note there is a tremor in the right hand when she attempts to write. SKIN: Facial hirsutism and male hair patterning of the abdomen and pubes. ROS Constitutional: No fevers chills, unexpected weight fluctuation HEENT: No current headache, Pulmonary: No shortness of breath cough sputum production Cardiac: No chest pain though she has had this in the past, no recent dysrhythmia or palpitations Breasts: Patient reports nipple sensitivity but no mass galactorrhea or redness Gastrointestinal: Patient continues to have a burning sensation in the pit of her stomach, : No UTI symptoms, discharge, leakage of fluid or bleeding Musculoskeletal: Back pain as noted in HPI Neurologic: Patient states she has difficulty articulating her words when tired , occasional right sided weakness with fatigue Skin: Excessive hair growth Psych: Patient denies inpatient psychiatric care DIAGNOSTIC DATA: Renal ultrasound negative for urolithiasis, 2 jets. No abnormalities found. Doppler studies were not accomplished. Obstetrical ultrasound: Living female fetus, cervix long at 3.6 cm. Adequate fluid. Growth parameters not assessed. LABORATORIES: Hemoglobin 10.9, white count 9.3, platelets 278. No left shift. Urine slightly hazy, few epithelial cells, no significant bacteria, not culturable. Sodium 137, potassium of 4.0, glucose 134. LDH 116, lipase low at 22, uric acid of 4.5 and creatinine of 0.7. ASSESSMENT: Patient complains of unremitting left lower quadrant pain, despite multiple doses of fentanyl. The source of the pain is not apparent. It is elicited with inguinal pressure, pressure to the left hip and touching the lumbar area. There is no history of trauma. She has a known large fibroid; however, this is right-sided, where her pain is predominantly left-sided. Do not suspect abruption and exam rules out labor. Possibilities include post-stroke syndrome, amplifying or causing pain. Internal medicine consult was called and they could not elucidate a source of her pain. Physical therapy evaluation was done for common pains of , which did not seem to fit the pattern. We have no MRI or other imaging. We do not have neurology, urology or maternal- medicine. Patient needs a higher level of care for evaluation and treatment. Discussed a working diagnosis and the need for a greater level resources with the patient and her . They approve of transport to [facility]. I discussed the situation with Eva Bobo M.D., OB hospitalist stonemason apprentice. Reviewed the case and he agrees to accept transport to the emergency room to continue the workup of this pain. Paperwork filled out for ambulance transport. [facility] is not felt to be necessary. TD: 05/30/2018 19:19 MTDSarahi
== END 2018-05-30 19:40 | disposition short-term general hospital (02) ==
LOC: WFO 08:41 → FBP 08:43 → WFO 19:40
PROVIDERS: ATTEND Obstetrics & Gynecology
DX: O99.89 Other specified diseases and conditions complicating pregnancy, childbirth and the puerperium (principal); R10.32 Left lower quadrant pain; M25.552 Pain in left hip; M54.5 Low back pain; O10.913 Unspecified pre-existing hypertension complicating pregnancy, third trimester; Z3A.29 29 weeks gestation of pregnancy; O24.419 Gestational diabetes mellitus in pregnancy, unspecified control; O09.523 Supervision of elderly multigravida, third trimester; O34.13 Maternal care for benign tumor of corpus uteri, third trimester; D25.9 Leiomyoma of uterus, unspecified; O99.213 Obesity complicating pregnancy, third trimester; E66.9 Obesity, unspecified; O98.513 Other viral diseases complicating pregnancy, third trimester; B00.9 Herpesviral infection, unspecified; O21.2 Late vomiting of pregnancy; T44.8X6A Underdosing of centrally-acting and adrenergic-neuron-blocking agents, initial encounter; Z91.138 Patient's unintentional underdosing of medication regimen for other reason; O99.283 Endocrine, nutritional and metabolic diseases complicating pregnancy, third trimester; E28.2 Polycystic ovarian syndrome; E78.5 Hyperlipidemia, unspecified; O99.343 Other mental disorders complicating pregnancy, third trimester; F41.9 Anxiety disorder, unspecified; O99.713 Diseases of the skin and subcutaneous tissue complicating pregnancy, third trimester; L68.0 Hirsutism; Z68.35 Body mass index [BMI] 35.0-35.9, adult; Z86.73 Personal history of transient ischemic attack (TIA), and cerebral infarction without residual deficits; Z79.82 Long term (current) use of aspirin; Z79.899 Other long term (current) drug therapy; Z87.891 Personal history of nicotine dependence
CPT/HCPCS: 36415; 76770; 76815; 80053; 81001; 82570; 82731; 84156; 85025; 96374; 96375; 96376; 99214; A9270; 87086

== ENCOUNTER 2018-09-28 19:51 | Emergency (ER) | payer OTHER ==
--- NOTE | 2018-09-28 20:52 | ED Physician Documentation ---
PD HPI URI - Stated complaint Stated Complaint: BP CONCERN/VOMITING/MORATAYA - Chief complaint Chief Complaint: Cardiac - History obtained from History obtained from: Patient - History of Present Illness Timing - onset: Today Timing duration: Days (1) Timing details: Abrupt onset, Still present Associated symptoms: Fever, Chills. No: Nasal congestion, Rhinorrhea, Dry cough Contributing factors: No: Sick contact Improves by: No: Medication Similar symptoms before: Has not had sx before Recently seen: Other (she is post without vaginal discharge (just clear fluid locia).) Review of Systems Constitutional: reports: Chills, Myalgias Nose: denies: Rhinorrhea / runny nose, Congestion Throat: denies: Sore throat Respiratory: denies: Cough GI: reports: Constipation. denies: Vomiting, Diarrhea PD PAST MEDICAL HISTORY - Past Medical History Cardiovascular: None Respiratory: None Endocrine/Autoimmune: None GI: None EXERCISE MANAGER: Ovarian cysts, Other : None HEENT: None Psych: None Musculoskeletal: Other Derm: None - Past Surgical History Past Surgical History: Yes General: Other Ortho: Other - Present Medications Home Medications: Ambulatory Orders Medication Instructions Recorded Confirmed Aspirin 81 mg PO DAILY 02/16/18 02/16/18 Famotidine 20 mg PO DAILY 02/16/18 02/16/18 Labetalol HCl 100 mg PO BID 02/16/18 02/16/18 Pnv95/Ferrous Fumarate/FA 1 tab PO DAILY 02/16/18 02/16/18 [ Tablet] Dexamethasone [Decadron] 4 mg PO DAILY #5 tablet 09/29/18 Ondansetron Odt [Zofran] 4 mg TL Q6H PRN #15 tablet 09/29/18 - Allergies Allergies/Adverse Reactions: Allergies Allergy/AdvReac Type Severity Reaction Status Date / Time morphine AdvReac Respiratory Verified 09/28/18 20:00 pseudoephedrine AdvReac Unknown Verified 09/28/18 20:00 [From Sudafed] - Social History Does the pt smoke?: No Smoking Status: Former smoker Does the pt drink ETOH?: Yes Does the pt have substance abuse?: No - Immunizations Immunizations are current?: Yes - POLST Patient has POLST: No PD ED PE NORMAL - Vitals Vital signs reviewed: Yes - General General: Alert and oriented X 3, No acute distress, Well developed/nourished - HEENT HEENT: Pharynx benign. No: Moist mucous membranes - Neck Neck: Supple, no meningeal sign, No adenopathy - Cardiac Cardiac: RRR, No murmur - Respiratory Respiratory: Clear bilaterally - Abdomen Abdomen: Soft, Non tender - Back Back: No CVA TTP - Derm Derm: Normal color - Extremities Extremities: No tenderness to palpate, Normal ROM s pain, No edema, No calf tenderness / cord - Neuro Neuro: Alert and oriented X 3, No motor deficit, Normal speech Results - Vitals Vitals: Oxygen O2 Source Room air - Labs Labs: Microbiology 09/28/18 21:05 Urine Culture - Preliminary Urine,Clean Catch CULTURE IN PROGRESS. RESULTS TO FOLLOW. Laboratory Tests 09/28/18 09/28/18 09/28/18 21:05 21:28 21:32 WBC 5.8 RBC 4.41 Hgb 13.3 Hct 38.7 MCV 87.9 MCH 30.1 MCHC 34.2 RDW 14.2 Plt Count 210 MPV 9.0 Neut # (Auto) 2.6 Lymph # (Auto) 2.4 [place] # (Auto) 0.6 Eos # (Auto) 0.1 Baso # (Auto) 0.0 Absolute Nucleated RBC 0.00 Nucleated RBC % 0.1 Sodium 140 Potassium 3.4 L Chloride 105 Carbon Dioxide 25 Anion Gap 10.0 BUN 14 Creatinine 0.7 Estimated GFR (MDRD) 93 Glucose 105 H Calcium 9.2 Magnesium 1.9 Total Bilirubin 0.6 AST 30 ALT 42 Alkaline Phosphatase 67 Total Protein 7.7 Albumin 4.2 Globulin 3.5 Albumin/Globulin Ratio 1.2 Lipase 27 Urine Color BROWN Urine Clarity CLOUDY Urine pH 5.5 Ur Specific [place] >=1.030 H Urine Protein 30 H Urine Glucose (UA) NEGATIVE Urine Ketones NEGATIVE Urine Occult Blood LARGE H Urine Nitrite NEGATIVE Urine Bilirubin NEGATIVE Urine Urobilinogen 0.2 (NORMAL) Ur Leukocyte Esterase TRACE H Urine RBC TNTC H Urine WBC 4-5 Ur Squamous Epith Cells RARE Squamous Urine Bacteria Few Ur Microscopic Review INDICATED Urine Culture Comments INDICATED Urine HCG, Qual NEGATIVE Influenza A (Rapid) Influenza B (Rapid) 09/28/18 21:55 WBC RBC Hgb Hct MCV MCH MCHC RDW Plt Count MPV Neut # (Auto) Lymph # (Auto) [place] # (Auto) Eos # (Auto) Baso # (Auto) Absolute Nucleated RBC Nucleated RBC % Sodium Potassium Chloride Carbon Dioxide Anion Gap BUN Creatinine Estimated GFR (MDRD) Glucose Calcium Magnesium Total Bilirubin AST ALT Alkaline Phosphatase Total Protein Albumin Globulin Albumin/Globulin Ratio Lipase Urine Color Urine Clarity Urine pH Ur Specific [place] Urine Protein Urine Glucose (UA) Urine Ketones Urine Occult Blood Urine Nitrite Urine Bilirubin Urine Urobilinogen Ur Leukocyte Esterase Urine RBC Urine WBC Ur Squamous Epith Cells Urine Bacteria Ur Microscopic Review Urine Culture Comments Urine HCG, Qual Influenza A (Rapid) Negative Influenza B (Rapid) Negative PD MEDICAL DECISION MAKING - ED course Complexity details: re-evaluated patient (Symptoms improved with medicines and fluids.), considered differential (This is likely a viral illness given the abrupt onset of nausea vomiting and some diarrhea. Her blood pressure is elevated and this has a concern but it seems more likely reactive to the situation. She states her blood pressure is typically good with 130-140 systolic. She has not had any change in medicines recently. Not having vaginal discharge. Is having diarrhea and rectal cramps. ), d/w patient Departure - Departure Disposition: 01 Home, Self Care Clinical Impression: Nausea vomiting and diarrhea, Dehydration Condition: Stable Record reviewed to determine appropriate education?: Yes Instructions: ED Diet Vomiting Diarrhea Follow-Up: MICHAEL POWER MD [Primary Care Provider] - Prescriptions: Dexamethasone [Decadron] 4 mg PO DAILY #5 tablet Ondansetron Odt [Zofran] 4 mg TL Q6H PRN #15 tablet PRN Reason: Nausea / Vomiting Comments: This sounds like a viral illness. Your flu test is negative. Drink small frequent fluids to stay hydrated. Progress food as able. Ondansetron every 4-6 hours if needed for nausea. Decadron anti-inflammatory daily for several days to help reduce some of the general symptoms. Recheck if not better over the next couple of days and return sooner if worse again. I would just see how your blood pressure does when you are feeling well and not adequately treated at being elevated when you are sick like this. Discharge Date/Time: 09/29/18 00:55
[2018-09-28] MEDS ORDERED: SODIUM CHLORIDE 0.9% 1,000 ML IV ONE ×2 (21:15→21:16)
[2018-09-28] MEDS ORDERED: ONDANSETRON 4 MG/2 ML VIAL IVP STA ×2 (21:15→23:15)
[2018-09-28] MEDS ORDERED: KETOROLAC 30 MG/ML VIAL IVP STA (21:15)
[2018-09-28 21:17] LABS: BILIRUBIN,URINE NEGATIVE (NEGATIVE); GLUCOSE, URINE (UA) NEGATIVE (NEGATIVE); KETONES,URINE (UA) NEGATIVE (NEGATIVE); LEUKOCYTE ESTERASE, URINE TRACE (NEGATIVE); NITRITE,URINE NEGATIVE (NEGATIVE); OCCULT BLOOD,URINE LARGE (NEGATIVE); PH,URINE 5.5 PH (5.0-7.5); PROTEIN,URINE 30 mg/dL (NEGATIVE); UROBILINOGEN,URINE 0.2 (NORMAL) E.U./dL (NORMAL)
[2018-09-28 21:22] LABS: CLARITY,URINE CLOUDY (CLEAR)
[2018-09-28 21:23] LABS: HCG UR QUAL NEGATIVE
[2018-09-28 21:26] LABS: BACTERIA,URINE Few /HPF (None Seen); RBC,URINE TNTC /HPF (0-5); SQUAMOUS EPITHELIAL CELL,UR RARE Squamous (<= Few)
[2018-09-28 21:35] LABS: BASOPHILS % (AUTO) 0.3 %; EOSINOPHILS # (AUTO) 0.1 10^3/uL (0.0-0.7); EOSINOPHILS % (AUTO) 2.4 %; HGB - HEMOGLOBIN 13.3 g/dL (12.0-16.0); LYMPHOCYTES # (AUTO) 2.4 10^3/uL (1.5-3.5); LYMPHOCYTES % (AUTO) 42.1 %; MEAN CORPUSCULAR HEMOGLOBIN 30.1 pg (27.0-31.0); MEAN CORPUSCULAR HGB CONC 34.2 g/dL (32.0-36.0); MEAN CORPUSCULAR VOLUME 87.9 fL (81.0-99.0); MONOCYTES # (AUTO) 0.6 10^3/uL (0.0-1.0); MONOCYTES % (AUTO) 9.9 %; NEUTROPHILS # (AUTO) 2.6 10^3/uL (1.5-6.6); NEUTROPHILS % (AUTO) 45.3 %; PLT - PLATELET COUNT 210 10^3/uL (130-450); RED BLOOD COUNT 4.41 10^6/uL (4.20-5.40); RED CELL DISTRIBUTION WIDTH 14.2 % (12.0-15.0); WHITE BLOOD COUNT 5.8 x10^3/uL (4.8-10.8)
[2018-09-28 21:46] LABS: ALBUMIN 4.2 g/dL (3.2-5.5); ALBUMIN/GLOBULIN RATIO 1.2 (1.0-2.2); BILIRUBIN,TOTAL 0.6 mg/dL (0.2-1.0); CALCIUM 9.2 mg/dL (8.5-10.3); CREATININE 0.7 mg/dL (0.4-1.0); MAGNESIUM 1.9 mg/dL (1.7-2.8); TOTAL PROTEIN 7.7 g/dL (6.7-8.2)
[2018-09-28] MEDS ORDERED: DEXAMETHASONE 10 MG/ML VIAL IVP STA (23:16)
[2018-09-28] MEDS ORDERED: ONDANSETRON ODT 4 MG Prepack 2 TL PRN (23:16)
[2018-09-28] MEDS ORDERED: MECLIZINE 12.5 MG TABLET PO STA (23:16)
[2018-09-29 00:50] VITALS: BP 149/84
== END 2018-09-29 00:55 | disposition home or self-care (01) ==
LOC: ED 19:51
DX: R11.2 Nausea with vomiting, unspecified (principal); R19.7 Diarrhea, unspecified; E86.0 Dehydration; Z87.891 Personal history of nicotine dependence; Z79.82 Long term (current) use of aspirin
CPT/HCPCS: 36415; 80053; 81001; 81025; 83690; 83735; 85025; 87086; 87275; 87276; 96361; 96374; 96376; 99283; A9270; 81003

== ENCOUNTER 2019-06-29 16:31 | Emergency (ER) | payer OTHER ==
[2019-06-29 16:59] LABS: BILIRUBIN,URINE NEGATIVE (NEGATIVE); GLUCOSE, URINE (UA) NEGATIVE (NEGATIVE); KETONES,URINE (UA) NEGATIVE (NEGATIVE); LEUKOCYTE ESTERASE, URINE NEGATIVE (NEGATIVE); NITRITE,URINE NEGATIVE (NEGATIVE); OCCULT BLOOD,URINE LARGE (NEGATIVE); PROTEIN,URINE 100 mg/dL (NEGATIVE); UROBILINOGEN,URINE 0.2 (NORMAL) E.U./dL (NORMAL)
[2019-06-29 17:01] LABS: CLARITY,URINE HAZY (CLEAR)
[2019-06-29 17:04] LABS: HCG UR QUAL NEGATIVE
[2019-06-29] MEDS ORDERED: HYDROcod/ACETAM 5/325 MG TABLET PO STA (17:12)
[2019-06-29 17:13] LABS: BACTERIA,URINE None Seen /HPF (None Seen); RBC,URINE TNTC /HPF (0-5); SQUAMOUS EPITHELIAL CELL,UR FEW Squamous (<= Few)
--- NOTE | 2019-06-29 17:13 | ED Physician Documentation ---
History of Present Illness - Stated complaint Stated Complaint: BACK PX/FEM - Chief complaint Chief Complaint: Back Pain - History obtained from History obtained from: Patient, Family - History of Present Illness Timing: Today Pain level max: 5 Pain level now: 5 - Additonal information Additional information: 39-year-old female complains of low back pain and dysuria today. Dark urine with foul smell. Concerned about UTI. No vaginal bleeding or discharge. Nothing makes it better. Worse with urination. No fall. No trauma. No numbness or tingling. No radiation down the legs. No saddle anesthesia. No IV drug use. Review of Systems Ten Systems: 10 systems reviewed and negative Constitutional: denies: Fever, Chills Cardiac: denies: Chest pain / pressure Respiratory: denies: Cough GI: denies: Vomiting, Diarrhea : reports: Other (no changes in sexual partners). 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: Ovarian cysts, Other : None HEENT: None Psych: None Musculoskeletal: Other Derm: None - Past Surgical History Past Surgical History: Yes General: Other Ortho: Other /CALL OUT OPERATOR: section - Present Medications Home Medications: Ambulatory Orders Medication Instructions Recorded Confirmed Aspirin 81 mg PO DAILY 02/16/18 02/16/18 Famotidine 20 mg PO DAILY 02/16/18 02/16/18 Labetalol HCl 100 mg PO BID 02/16/18 02/16/18 Pnv95/Ferrous Fumarate/FA 1 tab PO DAILY 02/16/18 02/16/18 [ Tablet] Ondansetron Odt [Zofran] 4 mg TL Q6H PRN #15 tablet 09/29/18 dexAMETHasone [Decadron] 4 mg PO DAILY #5 tablet 09/29/18 Meloxicam [Mobic] 15 mg PO DAILY PRN #20 tablet 06/29/19 Oxycodone HCl/Acetaminophen 1 - 2 each PO Q6H PRN #14 tablet 06/29/19 [Percocet 5-325 mg Tablet] - Allergies Allergies/Adverse Reactions: Allergies Allergy/AdvReac Type Severity Reaction Status Date / Time morphine AdvReac Respiratory Verified 06/29/19 16:46 pseudoephedrine AdvReac Unknown Verified 06/29/19 16:46 [From Sudafed] - Social History Does the pt smoke?: No Smoking Status: Never smoker Does the pt drink ETOH?: Yes Does the pt have substance abuse?: No - Immunizations Immunizations are current?: Yes - POLST Patient has POLST: No PD ED PE NORMAL - Vitals Vital signs reviewed: Yes - General General: Alert and oriented X 3, No acute distress - HEENT HEENT: PERRL, Moist mucous membranes - Neck Neck: Supple, no meningeal sign - Cardiac Cardiac: RRR, Strong equal pulses - Respiratory Respiratory: No respiratory distress, Clear bilaterally - Abdomen Abdomen: Soft, Non tender, Non distended - Female Female : Pt declined - Back Back: No CVA TTP, No spinal TTP - Derm Derm: Warm and dry - Extremities Extremities: Other (Normal bilateral lower extremity patellar and ankle jerk reflexes. Normal great toe extension bilaterally. no saddle anesthesia) - Neuro Neuro: Alert and oriented X 3, No motor deficit, No sensory deficit - Psych Psych: Normal mood, Normal affect Results - Vitals Vitals: Vital Signs - 24 hr 06/29/19 06/29/19 06/29/19 16:42 17:04 18:25 Temperature 36.1 C L 37.2 C Heart Rate 92 91 87 Respiratory 18 20 16 Rate Blood Pressure 171/113 H 163/80 H 143/75 H O2 Saturation 98 98 97 06/29/19 06/29/19 20:39 21:55 Temperature Heart Rate 77 77 Respiratory 19 18 Rate Blood Pressure 157/93 H 134/70 H O2 Saturation 98 99 Oxygen O2 Source Room air - Labs Labs: Laboratory Tests 06/29/19 06/29/19 16:49 16:49 Urine Color LT RED Urine Clarity HAZY Urine pH 6.0 Ur Specific [place] <=1.005 <=1.005 Urine Protein 100 H Urine Glucose (UA) NEGATIVE Urine Ketones NEGATIVE Urine Occult Blood LARGE H Urine Nitrite NEGATIVE Urine Bilirubin NEGATIVE Urine Urobilinogen 0.2 (NORMAL) Ur Leukocyte Esterase NEGATIVE Urine RBC TNTC H Urine WBC 0-3 Ur Squamous Epith Cells FEW Squamous Urine Bacteria None Seen Ur Microscopic Review INDICATED Urine Culture Comments NOT INDICATED Urine HCG, Qual NEGATIVE - Rads (name of study) pelvic US Radiology: Prelim report reviewed, EMP read contemporaneously, See rad report (Uterine fibroids. .Physiologic 1.7 cm left ovarian cyst, otherwise normal ovaries. ) abd/pelvis CT Radiology: Prelim report reviewed, EMP read contemporaneously, See rad report (. 3 mm nonobstructing right kidney stone. No ureter stones or hydronephrosis. 2. S teatosis of the liver. 3. Mild fat stranding lateral to the left ovary. Question a trace amount of adjacent fluid around the left ovary. Possibly physiologic. 4. There is a metallic density within the lumen or less likely adjacent to the descending colon in the left abdomen ) PD MEDICAL DECISION MAKING - ED course Complexity details: reviewed results, re-evaluated patient, considered differential, d/w patient, d/w family ED course: 39-year-old female with low back pain of unclear etiology. Possibly related to a left-sided ovarian cyst? She does have blood in the urine and does have a stone the right kidney, but this should not be causing symptoms as it is nonobstructing at this time. Not a ureteral stone at this time. No evidence of UTI. No changes in sexual partners. No vaginal discharge. Will trial on pain medication and follow-up with her doctor. Abdomen is soft, nontender nondistended. No evidence of cauda equina or epidural abscess. Ambulating with a normal gait. Patient counseled regarding signs and symptoms for which I believe and urgent re-evaluation would be necessary. Patient with good understanding of and agreement to plan and is comfortable going home at this time This document was made in part using voice recognition software. While efforts are made to proofread this document, sound alike and grammatical errors may occur. Departure - Departure Disposition: 01 Home, Self Care Clinical Impression: Ovarian cyst Qualifiers: Laterality: left Qualified Code(s): N83.202 - Unspecified ovarian cyst, left side Uterine fibroid Qualifiers: Uterine leiomyoma location: unspecified location Qualified Code(s): D25.9 - Leiomyoma of uterus, unspecified Condition: Good Instructions: ED Cyst Ovarian Follow-Up: MICHAEL POWER MD [Primary Care Provider] - Within 1 week Prescriptions: Meloxicam [Mobic] 15 mg PO DAILY PRN #20 tablet PRN Reason: pain Oxycodone HCl/Acetaminophen [Percocet 5-325 mg Tablet] 1 - 2 each PO Q6H PRN #14 tablet PRN Reason: pain Comments: Return if you worsen. Follow up with your doctor for further care. You do have an ovarian cyst on the left. You do have a stone in your right kidney. You also have fibroids in your uterus. Do not drink alcohol or drive while on narcotic pain medicine. Note that many narcotic pain relievers also contain tylenol/acetaminophen. Please ensure that your total dose of acetaminophen from all sources does not exceed 3 grams (3000mg) per day. You may constipated on this medication, take a stool softener such as "Colace" twice a day while you are on it. Also recommend a bulw-aki-bveyrvy laxative such as senna or MiraLAX any day that you do not have a bowel movement. If you received narcotic pain medication in the emergency department, do not drive or operate machinery for the next 24 hours. Discharge Date/Time: 06/29/19 21:55
--- NOTE | 2019-06-29 18:16 | CT Report ---
Reason: hematuria, back pain Procedure Date: 06/29/2019 Accession Number: [id number] / [id number] Procedure: CT - Abdomen/Pelvis WO CPT Code: FULL RESULT: EXAM: CT ABDOMEN AND PELVIS (CT KUB) EXAM DATE: 06/29/2019 05:58 PM. CLINICAL HISTORY: Hematuria, back pain. COMPARISONS: None. TECHNIQUE: Routine axial helical CT imaging was performed through the abdomen and pelvis without IV contrast. Reconstructions: Coronal and sagittal. In accordance with CT protocol optimization, one or more of the following dose reduction techniques were utilized for this exam: automated exposure control, adjustment of mA and/or KV based on patient size, or use of iterative reconstructive technique. FINDINGS: Lung Bases: Unremarkable. Right Kidney/Ureter: There is a 3 mm nonobstructing stone in the lower pole calyx. No hydronephrosis. No ureter stone. Left Kidney/Ureter: No stones, hydronephrosis, or hydroureter. No perinephric fat stranding. Other Solid Organs: Liver parenchyma is low in density. The spleen, pancreas and adrenal glands appear within normal limits for noncontrast CT Gallbladder/Bile Ducts: There is a small calcified gallstone in the gallbladder. The gallbladder is partially contracted. Peritoneal Cavity: The bowel is normal in caliber. There is a 7 mm metallic density along the medial wall of the descending colon in the left abdomen. Pelvic Organs: There is a mild amount of focal fat stranding located lateral to the left ovary. The uterus and ovaries appear normal in size for age. Vasculature: Unremarkable. Other: None. IMPRESSION: 1. 3 mm nonobstructing right kidney stone. No ureter stones or hydronephrosis. 2. Steatosis of the liver. 3. Mild fat stranding lateral to the left ovary. Question a trace amount of adjacent fluid around the left ovary. Possibly physiologic. 4. There is a metallic density within the lumen or less likely adjacent to the descending colon in the left abdomen RADIA
[2019-06-29] MEDS ORDERED: KETOROLAC 60 MG/2 ML VIAL IM STA (20:41)
[2019-06-29] MEDS ORDERED: oxyCODONE 5 MG TABLET PO STA (20:41)
--- NOTE | 2019-06-29 21:08 | Ultrasound Report ---
Reason: back pain, L ovary edema on CT Procedure Date: 06/29/2019 Accession Number: [id number] / [id number] Procedure: US - Pelvic w/Doppler Complete CPT Code: FULL RESULT: EXAM: PELVIC ULTRASOUND EXAM DATE: 06/29/2019 07:51 PM. CLINICAL HISTORY: Back pain, left ovary edema on CT. COMPARISON: ABDOMEN/PELVIS W/O 06/29/2019 5:52 PM. TECHNIQUE: Realtime transabdominal pelvic scan performed to identify the uterus and adnexa and as an overview of other pelvic structures, followed by transvaginal scan to provide greater detail of the uterus and adnexa, with static image documentation. Color Doppler and waveform evaluation performed. FINDINGS: Uterus: 9.4 x 4.7 x 7.1 cm, volume 164 cc. Anteverted position. Normal overall size and echotexture. Masses: There is a 1.5 cm posterior lower uterine segment fibroid. A left fundal 1.8 cm intramural fibroid is seen. Endometrium: 7 mm. Normal. Cervix: Unremarkable. Right Ovary: 2.9 x 2.4 x 2.7 cm, volume 9.8 cc. Normal echotexture and blood flow. PSV 8.3 cm/s, resistive index 0.49. Left Ovary: 2.8 x 2.3 x 2.2 cm, volume 7.4 cc. Best seen transabdominally. There is a simple 1.7 cm cyst.. PSV 12 cm/s, resistive index 0.53. Free Fluid: None. Other: None. IMPRESSION: 1. Uterine fibroids. 2.Physiologic 1.7 cm left ovarian cyst, otherwise normal ovaries. RADIA
[2019-06-29 21:58] VITALS: BP 134/70
== END 2019-06-29 21:55 | disposition home or self-care (01) ==
LOC: ED 16:31
DX: N83.292 Other ovarian cyst, left side (principal); D25.1 Intramural leiomyoma of uterus; N20.0 Calculus of kidney; K76.0 Fatty (change of) liver, not elsewhere classified; Z79.82 Long term (current) use of aspirin
CPT/HCPCS: 74176; 76856; 81001; 81025; 93975; 96372; 99284; A9270; 81003; 87086

== ENCOUNTER 2019-08-23 22:13 | Emergency (ER) | payer OTHER ==
--- NOTE | 2019-08-23 22:30 | ED Physician Documentation ---
PD HPI BACK PAIN - Stated complaint Stated Complaint: BACK PX - Chief complaint Chief Complaint: Abd Pain - History obtained from History obtained from: Patient - History of Present Illness Timing - onset: How many months ago (2) Timing - duration: Hours (2) Timing - details: Abrupt onset Pain level now: >10 Location: Upper, Mid, Lower, Right Quality: Pain Associated symptoms: Hematuria. No: Fever, Weakness, Numbness, Incontinent of urine Similar symptoms before: No diagnosis Recently seen: Clinic, Emergency Dept - Additional information Additional information: Is a 39-year-old woman who presents with complaints that she started having pain in her right side since Jun [address] she had a CT scan that showed a kidney stone. Since that time she has had repeated CT scans and in fact saw the urologist 2 days ago and on that same day ended up in the emergency department at [facility] where she had a injection of Dilaudid and a repeat CT scan that showed the stone was still in the kidney and the urologist did not feel that it was a source of the pain. 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 She is had continued nausea since she had that surgery. She vomited 2 days ago and then again tonight. The pain tonight started about an hour to an hour and a half prior to presentation is all on the right back from her rib cage all the way down into the buttock. She took a Percocet around noon but that has not done anything to alleviate the pain she does have a little pain radiating into the right leg and around into the front of the abdomen. She is never had prior back injury or surgery on her back. This pain is intermittent and when it starts it could last hours to days. She took some ibuprofen yesterday. She denies diarrhea and did have a bowel movement today. She denies any shortness of breath or coughing. No fever. She notices pressure whenever she urinates and has seen bright red blood in the urine. She just finished her menstrual period today. She is 1 year . Review of Systems Constitutional: denies: Fever Respiratory: denies: Dyspnea, Cough GI: reports: Nausea, Vomiting. denies: Constipation, Diarrhea : reports: Hematuria, LMP (She is on her menstrual cycle today). 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, Other : None HEENT: None Psych: None Musculoskeletal: Other Derm: None - Past Surgical History Past Surgical History: Yes General: Other Ortho: Other /BOILERMAKER PIPE FITTER: section - Present Medications Home Medications: Ambulatory Orders Medication Instructions Recorded Confirmed Aspirin 81 mg PO DAILY 02/16/18 02/16/18 Famotidine 20 mg PO DAILY 02/16/18 02/16/18 Labetalol HCl 100 mg PO BID 02/16/18 02/16/18 Pnv No.95/Ferrous Fum/Folic AC 1 tab PO DAILY 02/16/18 02/16/18 [ Tablet] Ondansetron Odt [Zofran] 4 mg TL Q6H PRN #15 tablet 09/29/18 dexAMETHasone [Decadron] 4 mg PO DAILY #5 tablet 09/29/18 Meloxicam [Mobic] 15 mg PO DAILY PRN #20 tablet 06/29/19 Oxycodone HCl/Acetaminophen 1 - 2 each PO Q6H PRN #14 tablet 06/29/19 [Percocet 5-325 mg Tablet] Cyclobenzaprine [Flexeril] 10 mg PO TID PRN #20 tablet 08/24/19 - Allergies Allergies/Adverse Reactions: Allergies Allergy/AdvReac Type Severity Reaction Status Date / Time morphine AdvReac Respiratory Verified 08/23/19 22:20 pseudoephedrine AdvReac Unknown Verified 08/23/19 22:20 [From Sudafed] - Social History Does the pt smoke?: No Smoking Status: Never smoker Does the pt drink ETOH?: Yes Does the pt have substance abuse?: No - Immunizations Immunizations are current?: Yes - POLST Patient has POLST: No PD ED PE NORMAL - Vitals Vital signs reviewed: Yes - General General: Alert and oriented X 3, Well developed/nourished, Other (Obese 39-year-old woman who sitting cross ligated on the exam table rocking back and forth, grunting in pain.) - HEENT HEENT: Atraumatic, PERRL, Moist mucous membranes, Other (No scleral icterus) - Cardiac Cardiac: RRR, No murmur, Strong equal pulses - Respiratory Respiratory: No respiratory distress, Clear bilaterally - Abdomen Abdomen: Normal bowel sounds, Soft, Non tender, Non distended, No organomegaly, Other (Abdomen is obese) - Back Back: No: No CVA TTP (There is right costovertebral angle tenderness) - Derm Derm: Other (Patient is diaphoretic) - Extremities Extremities: No deformity, No edema - Neuro Neuro: Alert and oriented X 3, director regulatory agency 2-12 intact, No motor deficit, No sensory deficit, Normal speech Results - Vitals Vitals: Vital Signs - 24 hr 08/23/19 08/23/19 22:20 22:26 Temperature 37.1 C Heart Rate 101 H 101 H Respiratory 20 20 Rate Blood Pressure 162/107 H 162/107 H O2 Saturation 99 99 Oxygen O2 Source Room air - Labs Labs: Laboratory Tests 08/23/19 08/23/19 08/23/19 22:50 23:10 23:10 WBC 7.6 RBC 4.36 Hgb 13.2 Hct 39.2 MCV 89.9 MCH 30.3 MCHC 33.7 RDW 12.7 Plt Count 266 MPV 10.9 H Neut # (Auto) 4.2 Lymph # (Auto) 2.4 [place] # (Auto) 0.8 Eos # (Auto) 0.2 Baso # (Auto) 0.0 Absolute Nucleated RBC 0.00 Nucleated RBC % 0.0 Sodium 142 Potassium 3.6 Chloride 108 Carbon Dioxide 24 Anion Gap 10.0 BUN 17 Creatinine 0.9 Estimated GFR (MDRD) 69 L Glucose 129 H Calcium 9.4 Total Bilirubin 0.6 AST 24 ALT 21 Alkaline Phosphatase 54 Total Protein 8.0 Albumin 4.5 Globulin 3.5 Albumin/Globulin Ratio 1.3 Lipase 28 Urine Color DARK YELLOW Urine Clarity HAZY Urine pH 5.5 Ur Specific [place] 1.025 Urine Protein TRACE Urine Glucose (UA) NEGATIVE Urine Ketones TRACE Urine Occult Blood LARGE H Urine Nitrite NEGATIVE Urine Bilirubin NEGATIVE Urine Urobilinogen 0.2 (NORMAL) Ur Leukocyte Esterase NEGATIVE Urine RBC TNTC H Urine WBC 6-10 H Ur Squamous Epith Cells MANY Squamous H Urine Bacteria Few Ur Microscopic Review INDICATED Urine Culture Comments NOT INDICATED Urine HCG, Qual NEGATIVE PD MEDICAL DECISION MAKING - ED course Complexity details: reviewed old records, reviewed results, re-evaluated patient, considered differential, d/w patient, d/w family ED course: Patient had an IV started and was given a liter of fluids and Toradol IV. She stated the pain was still an 8 out of 10 after that Toradol. I did obtain records from [facility] the CT scan done on 07 August and also the emergency department visit from [facility] just 2 days ago. She had a CT at that time as well both of these show the continued stone in the right kidney but no ureteral stone or hydronephrosis. In addition there is comment of a gallstone without gallbladder wall thickening or bile duct dilatation. White blood cell count today is normal as well as her BUN and creatinine. There is too numerous to count red blood cells in her urine but she is just ending her menstrual cycle. It is possible that this pain is musculoskeletal there is certainly no definitive Source on repeated CT scans that she has had done. I am to treat her with the muscle relaxer have her continue on ibuprofen 800 mg 3 times a day. She has oxycodone at home that she can take if needed for the pain. Getting give her gentle stretching exercises. She has a follow-up appointment with her primary care provider on September 05 and may be able to get into see them sooner regarding possibility of physical therapy. She likely will still need follow-up with the urologist considering the continued hematuria. Departure - Departure Disposition: Home, Self Care Clinical Impression: Acute flank pain Condition: Good Instructions: ED Back Care Tips, ED Exercises Lumbar Muscles Follow-Up: MICHAEL POWER MD [Primary Care Provider] - Prescriptions: Cyclobenzaprine [Flexeril] 10 mg PO TID PRN #20 tablet PRN Reason: Spasms Comments: Make sure you are drinking plenty of water. Continue with ibuprofen 800 mg ev shanta 8 hours with food. Trial of muscle relaxer 3 times a day although it could make you sleepy so do not drive or operate machinery if you are taking that. You still have your Oxycodone at home that you can use if needed for severe pain. Follow-up as scheduled with the urologist. Follow-up with your primary care provider for further pain management and consideration for physical therapy. Return to emergency department if you have increasing pain, you are vomiting and cannot keep anything down, develop fever or other problems arise.
[2019-08-23] MEDS ORDERED: SODIUM CHLORIDE 0.9% 1,000 ML IV ONE (22:46)
[2019-08-23] MEDS ORDERED: KETOROLAC 30 MG/ML VIAL IVP STA (22:47)
[2019-08-23 23:05] LABS: BILIRUBIN,URINE NEGATIVE (NEGATIVE); GLUCOSE, URINE (UA) NEGATIVE (NEGATIVE); KETONES,URINE (UA) TRACE mg/dL (NEGATIVE); LEUKOCYTE ESTERASE, URINE NEGATIVE (NEGATIVE); NITRITE,URINE NEGATIVE (NEGATIVE); OCCULT BLOOD,URINE LARGE (NEGATIVE); PH,URINE 5.5 PH (5.0-7.5); PROTEIN,URINE TRACE mg/dL (NEGATIVE); UROBILINOGEN,URINE 0.2 (NORMAL) E.U./dL (NORMAL)
[2019-08-23 23:07] LABS: CLARITY,URINE HAZY (CLEAR); HCG UR QUAL NEGATIVE
[2019-08-23 23:13] LABS: RBC,URINE TNTC /HPF (0-5); SQUAMOUS EPITHELIAL CELL,UR MANY Squamous (<= Few)
[2019-08-23 23:14] LABS: BACTERIA,URINE Few /HPF (None Seen)
[2019-08-23 23:19] LABS: BASOPHILS % (AUTO) 0.4 %; EOSINOPHILS # (AUTO) 0.2 10^3/uL (0.0-0.7); EOSINOPHILS % (AUTO) 2.2 %; HGB - HEMOGLOBIN 13.2 g/dL (12.0-16.0); LYMPHOCYTES # (AUTO) 2.4 10^3/uL (1.5-3.5); LYMPHOCYTES % (AUTO) 31.1 %; MEAN CORPUSCULAR HEMOGLOBIN 30.3 pg (27.0-31.0); MEAN CORPUSCULAR HGB CONC 33.7 g/dL (32.0-36.0); MEAN CORPUSCULAR VOLUME 89.9 fL (81.0-99.0); MEAN PLATELET VOLUME 10.9 fL (7.9-10.8); MONOCYTES # (AUTO) 0.8 10^3/uL (0.0-1.0); MONOCYTES % (AUTO) 10.7 %; NEUTROPHILS # (AUTO) 4.2 10^3/uL (1.5-6.6); NEUTROPHILS % (AUTO) 54.7 %; PLT - PLATELET COUNT 266 10^3/uL (130-450); RED BLOOD COUNT 4.36 10^6/uL (4.20-5.40); RED CELL DISTRIBUTION WIDTH 12.7 % (12.0-15.0); WHITE BLOOD COUNT 7.6 x10^3/uL (4.8-10.8)
[2019-08-23 23:33] LABS: ALBUMIN 4.5 g/dL (3.2-5.5); ALBUMIN/GLOBULIN RATIO 1.3 (1.0-2.2); BILIRUBIN,TOTAL 0.6 mg/dL (0.2-1.0); CALCIUM 9.4 mg/dL (8.5-10.3); CREATININE 0.9 mg/dL (0.4-1.0)
[2019-08-23] MEDS ORDERED: HYDROmorphone 1 MG/ML CARPUJECT IVP STA (23:53)
[2019-08-23] MEDS ORDERED: ONDANSETRON 4 MG/2 ML VIAL IVP STA (23:53)
[2019-08-24 00:20] VITALS: BP 147/91
== END 2019-08-24 00:20 | disposition home or self-care (01) ==
LOC: ED 22:13
DX: R10.9 Unspecified abdominal pain (principal); R11.2 Nausea with vomiting, unspecified; M54.9 Dorsalgia, unspecified; Z79.82 Long term (current) use of aspirin
CPT/HCPCS: 36415; 80053; 81001; 81025; 83690; 85025; 96374; 96375; 99283; 99284; J1170; 81003; 87086